=== PATIENT | female | born 1970 | race African-American/Black ===

== ENCOUNTER 2022-03-25 18:55 | Emergency (ER) | payer BC, OTHER ==
[2022-03-25 19:17] VITALS: BP 103/68; PULSE 83; RESP 18; TEMP 99.4; BMI 31.6
== END 2022-03-25 21:45 | disposition home or self-care (01) ==
LOC: JER 18:55
DX: K61.1 Rectal abscess (principal)
CPT/HCPCS: 87070; 87186; 87205; 99281-25

== ENCOUNTER 2022-05-05 20:33 | Emergency (ER) | payer OTHER ==
[2022-05-05 20:51] VITALS: BP 125/75; PULSE 84; RESP 18; TEMP 97; BMI 31.6
== END 2022-05-06 01:02 | disposition home or self-care (01) ==
LOC: JERFT 20:33 → JER 20:33 → JERFT 05-06 01:02
DX: N76.89 Other specified inflammation of vagina and vulva (principal)
CPT/HCPCS: 99281-25